=== PATIENT | female | born 1980 | race Caucasian/White ===

== ENCOUNTER → 2018-11-23 | Outpatient (CLI) | payer BC ==
--- NOTE | 2018-11-26 15:23 | MM ---
Reason for exam: screening (asymptomatic). Last mammogram was performed 4 years and 4 months ago. History: Patient has history of other cancer at age 36. Family history of breast cancer in maternal grandmother and breast cancer in paternal aunt at age 60. MG Screening Mammo w CAD Bilateral CC and MLO view(s) were taken. Prior study comparison: August 04, 2014, bilateral MG screening mammo w CAD. The breast tissue is heterogeneously dense. This may lower the sensitivity of mammography. There is an 8 mm oval obscured margin density in the right breast posterior middle and central. Finding is changed when compared to prior study. ASSESSMENT: Incomplete: need additional imaging evaluation, BI-RAD 0 RECOMMENDATION: Special view mammogram of the right breast.
== END | disposition home or self-care (01) ==
LOC: RADMAMWWP 10:47
PROVIDERS: ATTEND Obstetrics & Gynecology
DX: Z12.31 Encounter for screening mammogram for malignant neoplasm of breast (principal)
CPT/HCPCS: 77067

== ENCOUNTER → 2018-12-10 | Outpatient (CLI) | payer BC ==
--- NOTE | 2018-12-11 11:20 | MM ---
Reason for exam: additional evaluation requested from abnormal screening. Last mammogram was performed 1 month ago. History: Patient has history of other cancer at age 36. Family history of breast cancer in maternal grandmother and breast cancer in paternal aunt at age 60. Physical Findings: Nurse did not find any significant physical abnormalities on exam. MG 3D Work Up W/Cad RT Spot compression CC, spot compression MLO, and LM view(s) were taken of the right breast. Prior study comparison: November 23, 2018, bilateral MG screening mammo w CAD. August 04, 2014, bilateral MG screening mammo w CAD. Finding: There is a persistent circumscribed round mass located 4 cm from the nipple in the right breast. New finding since August 04, 2014. These results were verbally communicated with the patient and result sheet given to the patient on 12/10/18. ASSESSMENT: Incomplete: need additional imaging evaluation, BI-RAD 0 RECOMMENDATION: Ultrasound of the right breast.
--- NOTE | 2018-12-11 11:22 | USB ---
Reason for exam: additional evaluation requested from abnormal screening. History: Patient has history of other cancer at age 36. Family history of breast cancer in maternal grandmother and breast cancer in paternal aunt at age 60. US Breast Workup Limited RT Right limited breast ultrasound including focal area of concern, retroareolar and axilla demonstrates a 7 x 3 x 5mm oval, cystic, mixed lesion at 10 o'clock, a 10 x 3 x 9mm oval, cystic lesion at 1 o'clock, a 6 x 4 x 6mm oval, cystic lesion at 2 o'clock and a 10 x 3 x 7mm oval, solid, hypoechoic, vascular lesion at 2 o'clock for which a biopsy is recommended. These results were verbally communicated with the patient and result sheet given to the patient on 12/10/18. ASSESSMENT: Suspicious, BI-RAD 4 RECOMMENDATION: Ultrasound core biopsy of the right breast. Called Dr. Arellano with mammographic findings and has scheduled an appointment for the patient for 01/14/19 at 10:[address] Daniels. Biopsy scheduled for 12/23/18 at 2 o'clock. PRELIMINARY REPORT CALLED AND FAXED TO DR. DANIELS ON 12/11/18.
== END | disposition home or self-care (01) ==
LOC: RADMAMWWP 13:17
PROVIDERS: ATTEND Obstetrics & Gynecology
DX: R92.8 Other abnormal and inconclusive findings on diagnostic imaging of breast (principal)
CPT/HCPCS: 77061; 77065

== ENCOUNTER → 2018-12-23 | Day surgery (SDC) | payer BC ==
[2018-12-23 13:23] VITALS: RESP 16; BMI 22.6
[2018-12-23 14:29] VITALS: BP 126/83; PULSE 92; TEMP 98.9
--- NOTE | 2018-12-23 14:35 | USB ---
EXAMINATION TYPE: US biopsy breast VAD RT, MG diagnostic mammo RT wo CAD DATE OF EXAM: 12/23/2018 CLINICAL HISTORY: R92.8 Abn mammo. TECHNIQUE: Ultrasound guided core biopsy of right 2:00 breast. COMPARISON: NONE FINDINGS: The procedure of ultrasound guided core biopsy was explained to the patient. Benefits, alternatives, and risks were discussed. An informed consent was then obtained. The patient was placed in supine positioning for imaging and for the procedure. The overlying skin was prepped and draped in usual sterile fashion. Lidocaine buffered with bicarbonate was used as anesthetic into the skin and subcutaneous tissue up to area of concern in the right 2:00 breast. Under ultrasound guidance, a 12-gauge vacuum assisted biopsy gun device was used to obtain 4 core samples. Following this, a biopsy clip was left in lesion. The patient tolerated the procedure well without any immediate complication. The patient was kept in the radiology department for short stay after the procedure and then discharged home in stable condition. IMPRESSION: Successful, uncomplicated ultrasound guided core biopsy of area of concern in the right 2:00 breast. , full pathology results to follow. Pathology Results: Benign RIGHT BREAST, TWO O'CLOCK, ULTRASOUND GUIDED CORE BIOPSY: Fibroadenoma and fibrocystic changes including fibrosis, cysts and apocrine metaplasia. Recommendation Follow up mammogram of the right breast in 6 months. (Additional short interval follow up recommended for subtle nodularity located at 12-1 o'clock more posteriorly. May correspond to the cyst seen on ultrasound. ) MTDD
== END ==
LOC: RADUSWWP 12:56
PROVIDERS: ATTEND Surgery
DX: D24.1 Benign neoplasm of right breast (principal); N60.01 Solitary cyst of right breast; N60.31 Fibrosclerosis of right breast; N60.81 Other benign mammary dysplasias of right breast; Z88.2 Allergy status to sulfonamides
CPT/HCPCS: 88305; 77065; 19083; A4648; J2001

== ENCOUNTER → 2019-06-24 | Outpatient (CLI) | payer BC ==
--- NOTE | 2019-06-24 11:27 | MM ---
Reason for exam: follow-up at short interval from prior study. Last mammogram was performed 6 months ago. History: Patient has history of other cancer at age 36. Family history of breast cancer in maternal grandmother and breast cancer in paternal aunt at age 60. Benign US biopsy breast VAD RT of the right breast, December 23, 2018. Physical Findings: Nurse Summary: 0.5cm nodule in the right breast at 3 o'clock (nurse TM). MG 3D Diag Mammo W/Cad RT CC and MLO view(s) were taken of the right breast. Prior study comparison: December 23, 2018, right breast MG diagnostic mammo RT wo CAD. December 10, 2018, right breast MG 3d work up w/cad RT. The breast tissue is heterogeneously dense. This may lower the sensitivity of mammography. No suspicious abnormality. Palpable corresponds to the biopsy marker indicating the biopsied fibroadenoma. These results were verbally communicated with the patient and result sheet given to the patient on 06/24/19. ASSESSMENT: Benign, BI-RAD 2 RECOMMENDATION: Return to routine screening mammogram schedule for both breasts. Back on schedule for November 2019.
== END | disposition home or self-care (01) ==
LOC: RADMAMWWP 09:26
PROVIDERS: ATTEND Surgery
DX: R92.8 Other abnormal and inconclusive findings on diagnostic imaging of breast (principal)
CPT/HCPCS: 77061; 77065

== ENCOUNTER → 2019-11-25 | Outpatient (CLI) | payer BC ==
[~2019-11-25] MED LIST: ACETAMINOPHEN TAB 325 MG TAB ONE
--- NOTE | 2019-11-26 11:08 | MM ---
Reason for exam: screening (asymptomatic). Last mammogram was performed 5 months ago. History: Patient has history of other cancer at age 36. Family history of breast cancer in maternal grandmother and breast cancer in paternal aunt at age 60. Benign US biopsy breast VAD RT of the right breast, December 23, 2018. Physical Findings: A clinical breast exam by your physician is recommended on an annual basis and results should be correlated with mammographic findings. MG 3D Screening Mammo W/Cad Bilateral CC and MLO view(s) were taken. Prior study comparison: June 24, 2019, right breast MG 3d diag mammo w/cad RT. December 23, 2018, right breast MG diagnostic mammo RT wo CAD. The breast tissue is heterogeneously dense. This may lower the sensitivity of mammography. No suspicious abnormality. No significant changes when compared with prior studies. ASSESSMENT: Negative, BI-RAD 1 RECOMMENDATION: Routine screening mammogram of both breasts in 1 year.
== END | disposition home or self-care (01) ==
LOC: RADMAMWWP 08:34
PROVIDERS: ATTEND Surgery
DX: Z12.31 Encounter for screening mammogram for malignant neoplasm of breast (principal)
CPT/HCPCS: 77063; 77067

== ENCOUNTER → 2020-04-24 | Outpatient (CLI) | payer BC ==
--- NOTE | 2020-04-25 09:58 | USB ---
Reason for exam: clinical finding. History: Patient has history of other cancer at age 36. Family history of breast cancer in maternal grandmother and breast cancer in paternal aunt at age 60. Benign US biopsy breast VAD RT of the right breast, December 23, 2018. Indicated problem(s): lump or thickening in the right breast. Physical Findings: Nurse Summary: Patient complains of intermittent right breast tender lump upper outer quadrant, left breast 12 o'clock, bilateral nodularity, movable (nurse mj). US Breast Limited BILAT Right complete breast ultrasound includes all four quadrants, the retroareolar region and axilla. Finding demonstrates a 0.8 x 0.9 x 0.3cm mixed lesion with clip at 1 o'clock, previously biopsied, benign and a 0.6 x 0.8 x 0.4cm cystic lesion at 10 o'clock with thin septation, benign. No other abnormality especially upper outer quadrant in patient's palpated region. Left limited breast ultrasound including focal area of concern, retroareolar and axilla demonstrates a 0.4 x 0.4 x 0.3cm cystic, benign lesion at 12 o'clock. Scanned 11-1 o'clock along patient's palpated region. These results were verbally communicated with the patient and result sheet given to the patient on 04/24/20. ASSESSMENT: Benign, BI-RAD 2 RECOMMENDATION: Return to routine screening mammogram schedule for both breasts. Manage on a clinical basis with regard to any suspicious palpable.
== END | disposition home or self-care (01) ==
LOC: RADUSWWP 08:41
PROVIDERS: ATTEND Obstetrics & Gynecology
DX: N63.10 Unspecified lump in the right breast, unspecified quadrant (principal); N63.20 Unspecified lump in the left breast, unspecified quadrant

== ENCOUNTER → 2020-12-26 | Outpatient (CLI) | payer BC ==
--- NOTE | 2020-12-27 10:01 | MM ---
Reason for exam: screening (asymptomatic). Last mammogram was performed 1 year and 1 month ago. History: Patient has history of other cancer at age 36. Family history of breast cancer in maternal grandmother and breast cancer in paternal aunt at age 60. Benign US biopsy breast VAD RT of the right breast, December 23, 2018. Physical Findings: A clinical breast exam by your physician is recommended on an annual basis and results should be correlated with mammographic findings. MG 3D Screening Mammo W/Cad Bilateral CC and MLO view(s) were taken. Prior study comparison: November 25, 2019, bilateral MG 3d screening mammo w/cad. June 24, 2019, right breast MG 3d diag mammo w/cad RT. The breast tissue is heterogeneously dense. This may lower the sensitivity of mammography. There is no discrete abnormality. No significant changes when compared with prior studies. ASSESSMENT: Negative, BI-RAD 1 RECOMMENDATION: Routine screening mammogram of both breasts in 1 year.
== END | disposition home or self-care (01) ==
LOC: RADMAMWWP 08:15
PROVIDERS: ATTEND Obstetrics & Gynecology
DX: Z12.31 Encounter for screening mammogram for malignant neoplasm of breast (principal)
CPT/HCPCS: 77063; 77067

== ENCOUNTER → 2022-01-01 | Outpatient (CLI) | payer BC ==
--- NOTE | 2022-01-03 12:05 | MM ---
Reason for exam: screening (asymptomatic). Last mammogram was performed 1 year ago. History: Patient has history of other cancer at age 36. Family history of breast cancer in maternal grandmother and breast cancer in paternal aunt at age 60. Benign US biopsy breast VAD RT of the right breast, December 23, 2018. Physical Findings: A clinical breast exam by your physician is recommended on an annual basis and results should be correlated with mammographic findings. MG 3D Screening Mammo W/Cad Bilateral CC and MLO view(s) were taken. Prior study comparison: December 26, 2020, bilateral MG 3d screening mammo w/cad. November 25, 2019, bilateral MG 3d screening mammo w/cad. The breast tissue is heterogeneously dense. This may lower the sensitivity of mammography. Focal asymmetry upper outer right breast zone C. ASSESSMENT: Incomplete: need additional imaging evaluation, BI-RAD 0 RECOMMENDATION: Special view mammogram of the right breast. If lesion persists on supplemental views, image directed ultrasound is recommended. [facility] will attempt to contact patient to return for supplemental views and ultrasound if indicated.
== END | disposition home or self-care (01) ==
LOC: RADMAMWWP 08:58
PROVIDERS: ATTEND Obstetrics & Gynecology
DX: Z12.31 Encounter for screening mammogram for malignant neoplasm of breast (principal)
CPT/HCPCS: 77063; 77067

== ENCOUNTER → 2022-01-04 | Outpatient (CLI) | payer BC ==
--- NOTE | 2022-01-04 11:08 | MM ---
Reason for exam: additional evaluation requested from abnormal screening. Last mammogram was performed less than 1 month ago. History: Patient has history of other cancer at age 36. Family history of breast cancer in maternal grandmother and breast cancer in paternal aunt at age 60. Benign US biopsy breast VAD RT of the right breast, December 23, 2018. Physical Findings: Nurse did not find any significant physical abnormalities on exam. MG 3D Work Up W/Cad RT Spot compression CC, spot compression MLO, and ML view(s) were taken of the right breast. Prior study comparison: January 01, 2022, bilateral MG 3d screening mammo w/cad. December 26, 2020, bilateral MG 3d screening mammo w/cad. The breast tissue is heterogeneously dense. This may lower the sensitivity of mammography. Nodularity persists upper outer quadrant right breast 7cm from nipple 8mm and 8mm respectively. These results were verbally communicated with the patient and result sheet given to the patient on 01/04/22. ASSESSMENT: Incomplete: need additional imaging evaluation, BI-RAD 0 RECOMMENDATION: Ultrasound of the right breast.
--- NOTE | 2022-01-04 11:11 | USB ---
Reason for exam: additional evaluation requested from abnormal screening. History: Patient has history of other cancer at age 36. Family history of breast cancer in maternal grandmother and breast cancer in paternal aunt at age 60. Benign US biopsy breast VAD RT of the right breast, December 23, 2018. US Breast Workup Limited RT Right limited breast ultrasound including focal area of concern, retroareolar and axilla demonstrates a 0.8 x 0.4 x 0.8cm oval, cystic cluster at 11 o'clock. These results were verbally communicated with the patient and result sheet given to the patient on 01/04/22. ASSESSMENT: Probably benign, BI-RAD 3 RECOMMENDATION: Follow-up diagnostic mammogram and ultrasound of the right breast in 6 months.
== END | disposition home or self-care (01) ==
LOC: RADMAMWWP 07:04
PROVIDERS: ATTEND Obstetrics & Gynecology
DX: R92.8 Other abnormal and inconclusive findings on diagnostic imaging of breast (principal); Z80.3 Family history of malignant neoplasm of breast
CPT/HCPCS: 77061; 77065

== ENCOUNTER → 2022-07-10 | Outpatient (CLI) | payer BC ==
--- NOTE | 2022-07-10 09:40 | MM ---
Reason for Exam: Follow-up at short interval from prior study. Last screening mammogram was performed 6 month(s) ago. Patient History: Menarche at age 11. First Full-Term at age 17. Other cancer, age 36. 12/23/2018, Benign Core Biopsy on the right side. Maternal grandmother had breast cancer. Paternal aunt had breast cancer, age 60. Last menstrual period: 07/09/2022 Risk Values: Krysten 5 year model risk: 0.8%. NCI Lifetime model risk: 8.7%. Prior Study Comparison: 08/04/2014 Bilateral Screening Mammogram, [facility]. 11/23/2018 Bilateral Screening Mammogram, [facility]. 12/10/2018 Right Diagnostic Mammogram, [facility]. 12/10/2018 Right Diagnostic Ultrasound, [facility]. 12/23/2018 Right Diagnostic Mammogram, [facility]. 06/24/2019 Right Diagnostic Mammogram, [facility]. 11/25/2019 Bilateral Screening Mammogram, [facility]. 04/24/2020 Bilateral Diagnostic Ultrasound, [facility]. 12/26/2020 Bilateral Screening Mammogram, [facility]. 01/01/2022 Bilateral Screening Mammogram, [facility]. 01/04/2022 Right Diagnostic Mammogram, [facility]. 01/04/2022 Right Diagnostic Ultrasound, [facility]. Tissue Density: Right: The breast tissue is heterogeneously dense. This may lower the sensitivity of mammography. Findings: Analyzed By CAD. Nodularity upper outer quadrant right breast persists. Ultrasound is recommended. Overall Assessment: Incomplete: need additional imaging evaluation, BI-RAD 0 Management: Diagnostic Breast Ultrasound of the right breast. A clinical breast exam by your physician is recommended on an annual basis and results should be correlated with mammographic findings. This exam should not preclude additional follow-up of suspicious palpable abnormalities. Results were given to the patient verbally at the time of exam. Electronically signed and approved by: Marcelo Betancourt M.D. Radiologis
--- NOTE | 2022-07-10 10:07 | USB ---
Reason for Exam: Follow-up at short interval from prior study. Patient History: Menarche at age 11. First Full-Term at age 17. Other cancer, age 36. 12/23/2018, Benign Core Biopsy on the right side. Maternal grandmother had breast cancer. Paternal aunt had breast cancer, age 60. Risk Values: Krysten 5 year model risk: 0.8%. NCI Lifetime model risk: 8.7%. Technique: Method: Targeted. Prior Study Comparison: 12/26/2020 Bilateral Screening Mammogram, [facility]. 01/01/2022 Bilateral Screening Mammogram, [facility]. 01/04/2022 Right Diagnostic Mammogram, [facility]. Findings: Again noted is a cyst cluster within the right 11:00 position 7 cm from the nipple measuring 9 mm in maximal dimension. No solid masses are seen.. Overall Assessment: Probably benign, BI-RAD 3 Management: Diagnostic Mammogram of both breasts in 6 months. A clinical breast exam by your physician is recommended on an annual basis and results should be correlated with mammographic findings. Electronically signed and approved by: Marcelo Betancourt M.D. Radiologis
== END | disposition home or self-care (01) ==
LOC: RADMAMWWP 09:15
PROVIDERS: ATTEND Obstetrics & Gynecology
DX: R92.8 Other abnormal and inconclusive findings on diagnostic imaging of breast (principal); Z80.3 Family history of malignant neoplasm of breast
CPT/HCPCS: 77061; 77065

== ENCOUNTER → 2024-01-15 | Outpatient (CLI) | payer BC ==
--- NOTE | 2024-01-16 08:43 | MM ---
Reason for Exam: Screening (asymptomatic). Last screening mammogram was performed 12 month(s) ago. Patient History: Menarche at age 11. First Full-Term at age 17. Other cancer, age 36. 12/23/2018, Benign Core Biopsy on the right side. Maternal grandmother had breast cancer, age 60. Paternal aunt had breast cancer, age 60. Last menstrual period: 12/31/2023 Risk Values: Krysten 5 year model risk: 0.9%. NCI Lifetime model risk: 8.4%. Prior Study Comparison: 01/04/2022 Right Diagnostic Mammogram, [facility]. 07/10/2022 Right MG 3D diag mammo w/cad RT, [facility]. 01/13/2023 Bilateral MG 3D diag mammo w/cad SHAYE, [facility]. Tissue Density: The breasts are heterogeneously dense, which may obscure small masses. Findings: Analyzed By CAD. There is no suspicious group of microcalcifications or new suspicious mass in either breast. Overall Assessment: Negative, BI-RAD 1 Management: Screening Mammogram of both breasts in 1 year. . Patient should continue monthly self-breast exams. A clinical breast exam by your physician is recommended on an annual basis. This exam should not preclude additional follow-up of suspicious palpable abnormalities. Note on Krysten scores and lifetime risk: 1. A Krysten score greater than 3% is considered moderate risk. If this is the case, consider specialist referral to assess eligibility for a risk reducing agent. 2. If overall lifetime risk for the development of breast cancer is 20% or higher, the patient may qualify for future screening with alternating mammogram and breast MRI. Electronically signed and approved by: Marcelo Betancourt M.D. Radiologis
== END | disposition home or self-care (01) ==
LOC: RADMAMWWP 08:04
PROVIDERS: ATTEND Obstetrics & Gynecology
DX: Z12.31 Encounter for screening mammogram for malignant neoplasm of breast (principal); Z80.3 Family history of malignant neoplasm of breast
CPT/HCPCS: 77063; 77067

== ENCOUNTER → 2025-01-18 | Outpatient (CLI) | payer BC ==
--- NOTE | 2025-01-18 10:14 | MM ---
Reason for Exam: Screening (asymptomatic). Last screening mammogram was performed 12 month(s) ago. Patient History: Menarche at age 11. First Full-Term at age 17. Other cancer, age 36. 12/23/2018, Benign Core Biopsy on the right side. Maternal grandmother had breast cancer, age 60. Paternal aunt had breast cancer, age 60. Last menstrual period: 11/11/2024 Risk Values: Krysten 5 year model risk: 0.9%. NCI Lifetime model risk: 8.3%. Prior Study Comparison: 07/10/2022 Right MG 3D diag mammo w/cad RT, [facility]. 01/13/2023 Bilateral MG 3D diag mammo w/cad SHAYE, [facility]. 01/15/2024 Bilateral MG 3D screening mammo w/cad, [facility]. Tissue Density: The breasts are heterogeneously dense, which may obscure small masses. Findings: Analyzed By CAD. There is no suspicious group of microcalcifications or new suspicious mass in either breast. Overall Assessment: Negative, BI-RAD 1 Management: Screening Mammogram of both breasts in 1 year. . Patient should continue monthly self-breast exams. A clinical breast exam by your physician is recommended on an annual basis. This exam should not preclude additional follow-up of suspicious palpable abnormalities. Note on Krysten scores and lifetime risk: 1. A Krysten score greater than 3% is considered moderate risk. If this is the case, consider specialist referral to assess eligibility for a risk reducing agent. 2. If overall lifetime risk for the development of breast cancer is 20% or higher, the patient may qualify for future screening with alternating mammogram and breast MRI. [facility], , 01/18/2025 10:10 AM. Electronically signed and approved by: Marcelo Betancourt M.D. Radiologis
== END | disposition home or self-care (01) ==
LOC: RADMAMWWP 08:33
PROVIDERS: ATTEND Obstetrics & Gynecology
DX: Z12.31 Encounter for screening mammogram for malignant neoplasm of breast (principal); R92.333 Mammographic heterogeneous density, bilateral breasts; Z80.3 Family history of malignant neoplasm of breast
CPT/HCPCS: 77063; 77067